=== PATIENT | female | born 1940 | race Caucasian/White ===

== ENCOUNTER 2020-07-14 08:42 | Outpatient (REF) | payer MEDICARE, SELFPAY ==
[2020-07-14 11:47] LABS: Estimated Average Glucose 131 mg/dL; Hemoglobin A1c % 6.2 %
[2020-07-14 11:57] LABS: Alanine Aminotransferase 31 U/L (0-31); Anion Gap 15 (12-20); Aspartate Amino Transferase 27 U/L (5-31); Blood Urea Nitrogen 20 mg/dL (9-16); Calcium 9.3 mg/dL (8.4-10.2); Carbon Dioxide 25 mmol/L (22-29); Chloride 106 mmol/L (96-108); Cholesterol 171 mg/dL; Estimated Glomerular Filt Rate > 60; Glucose Fasting 136 mg/dL (60-99); HDL Cholesterol 56 mg/dL; LDL Cholesterol Calculated 88 mg/dl; Potassium 4.6 mmol/l (3.3-5.1); Sodium 141 mmol/L (135-145); Triglycerides 136 mg/dL
[2020-07-14 12:03] LABS: Microalbum/Creatinine Ratio Ur 18.1 ug/mg cr
[2020-07-14 12:09] LABS: Vitamin D 25-OH Total 54.3 ng/mL (>30)
== END 2020-07-14 08:43 | disposition home or self-care (01) ==
LOC: HO.HMGCLDS 08:42
PROVIDERS: PCP Internal Medicine; Visit Provider Internal Medicine
DX: E78.5 Hyperlipidemia, unspecified (principal); E11.9 Type 2 diabetes mellitus without complications; I10 Essential (primary) hypertension
CPT/HCPCS: 36415; 80048; 80061; 82043; 82306; 83036; 84450; 84460

== ENCOUNTER 2020-10-12 17:14 | Emergency (ER) | payer MEDICARE, SELFPAY | END 2020-10-12 19:02 | disposition left against medical advice (07) | PROVIDERS: Emergency Provider Emergency Medicine; PCP Internal Medicine | DX: M25.512 Pain in left shoulder (principal); M25.511 Pain in right shoulder ==

== ENCOUNTER 2020-11-10 09:32 | Outpatient (REF) | payer MEDICARE, SELFPAY ==
[2020-11-10 11:40] LABS: Estimated Average Glucose 134 mg/dL; Hemoglobin A1c % 6.3 %
[2020-11-10 12:03] LABS: Alanine Aminotransferase 28 U/L (0-31); Anion Gap 13 (12-20); Aspartate Amino Transferase 27 U/L (5-31); Blood Urea Nitrogen 19 mg/dL (9-16); Calcium 9.7 mg/dL (8.4-10.2); Carbon Dioxide 27 mmol/L (22-29); Chloride 105 mmol/L (96-108); Cholesterol 175 mg/dL; Estimated Glomerular Filt Rate > 60; Glucose Fasting 139 mg/dL (60-99); HDL Cholesterol 53 mg/dL; LDL Cholesterol Calculated 89 mg/dl; Potassium 4.3 mmol/L (3.3-5.1); Sodium 141 mmol/L (135-145); Triglycerides 166 mg/dL
[2020-11-10 12:07] LABS: Vitamin D 25-OH Total 51.9 ng/mL (>30)
[2020-11-10 12:39] LABS: Creatinine Urine 195.48 mg/dL; Microalbum/Creatinine Ratio Ur 11.2 ug/mg cr
== END 2020-11-10 09:33 | disposition home or self-care (01) ==
LOC: HO.HMGCLDS 09:32
PROVIDERS: PCP Internal Medicine; Visit Provider Internal Medicine
DX: E78.5 Hyperlipidemia, unspecified (principal); E11.9 Type 2 diabetes mellitus without complications; I10 Essential (primary) hypertension; Z78.0 Asymptomatic menopausal state
CPT/HCPCS: 36415; 80048; 80061; 82043; 82306; 83036; 84450; 84460

== ENCOUNTER 2021-05-17 09:55 | Outpatient (REF) | payer MEDICARE, SELFPAY ==
[2021-05-17 12:15] LABS: Estimated Average Glucose 131 mg/dL; Hemoglobin A1C 151.4857 umol/L; Hemoglobin A1c % 6.2 %
[2021-05-17 16:13] LABS: Alanine Aminotransferase 36 U/L (0-31); Anion Gap 14 (12-20); Aspartate Amino Transferase 29 U/L (5-31); Blood Urea Nitrogen 23 mg/dL (9-16); Calcium 9.7 mg/dL (8.4-10.2); Carbon Dioxide 26 mmol/L (22-29); Chloride 105 mmol/L (96-108); Cholesterol 186 mg/dL; Estimated Glomerular Filt Rate 56; Glucose Fasting 166 mg/dL (60-99); HDL Cholesterol 55 mg/dL; LDL Cholesterol Calculated 99 mg/dl; Potassium 4.7 mmol/L (3.3-5.1); Sodium 140 mmol/L (135-145); Triglycerides 162 mg/dL
[2021-05-17 16:34] LABS: Vitamin D 25-OH Total 50.4 ng/mL (>30)
== END 2021-05-17 09:56 | disposition home or self-care (01) ==
LOC: HO.HMGCLDS 09:55
PROVIDERS: PCP Internal Medicine; Visit Provider Internal Medicine
DX: E11.9 Type 2 diabetes mellitus without complications (principal); E78.5 Hyperlipidemia, unspecified; I10 Essential (primary) hypertension; M85.852 Other specified disorders of bone density and structure, left thigh; Z78.0 Asymptomatic menopausal state
CPT/HCPCS: 36415; 80048; 80061; 82306; 83036; 84450; 84460

== ENCOUNTER 2021-07-08 10:45 | Outpatient (REF) | payer MEDICARE, SELFPAY ==
--- NOTE | ~2021-07-08 | MM_ITS ---
EXAMINATION: MM SCREENING DIGITAL BREAST TOMOSYNTHESIS, BILATERAL CLINICAL INFORMATION: Screening. Asymptomatic. The lifetime risk of breast cancer based on the Tyrer-Cuzick Model is 2.1%. COMPARISON: Mammography: June 11, 2019 and studies dating back to April 24, 2014 TECHNIQUE: Digital breast tomosynthesis is performed in both the craniocaudal and mediolateral oblique views along with computer-aided detection (CAD). Synthesized 2D images are generated from the tomosynthesis. FINDINGS: There are scattered areas of fibroglandular density (ACR BI-RADS breast composition Category b). There are no significant masses, abnormal calcifications, or other abnormalities. MM/MM tomosynthesis screening BI IMPRESSION: There are no significant changes from prior study. ASSESSMENT: BI-RADS 1: Negative RECOMMENDATION: Routine annual mammography screening. This patient's information was entered into a reminder system with a target due date for their next mammogram.
--- NOTE | ~2021-07-08 | MM_ITS ---
EXAMINATION: BONE DENSITOMETRY CLINICAL INDICATION: Menopause. COMPARISON: Previous BD dated 06/05/2018 and baseline BD dated 08/28/2009. TECHNIQUE: Using a Revivio DXA System (software version: 13.1) manufactured by [employer], dual-energy x-ray absorptiometry was performed of the lumbar spine and left hip. The images are of good technical quality. Summary results are attached. FINDINGS: AP SPINE L1-L3 (excluding L4): The data of L1-L4 has been changed to exclude the L4 vertebral body, because degenerative changes at this level may cause overestimation of lumbar spine density. Current: BMD 1.201 g/cm2, Z-score 1.3, T-score 0.3, normal, 2.7% decrease from previous, 2.0% increase from baseline (<5% change is not significant). Prior: BMD 1.234 g/cm2. Baseline: BMD 1.178 g/cm2. LEFT FEMUR, NECK: Current: BMD 0.938 g/cm2, Z-score 1.0, T-score -0.7, normal. Prior: BMD 0.936 g/cm2. Baseline: BMD 1.011 g/cm2. LEFT FEMUR, TOTAL: Current: BMD 1.137 g/cm2, Z-score 2.6, T-score 1.0, normal, 4.5% increase from previous, 1.2% decrease from baseline (<5% change is not significant). Prior: BMD 1.088 g/cm2. Baseline: BMD 1.151 g/cm2. IDENTIFIED RISK FACTORS: Menopause, hysterectomy, family history (parent hip fracture), bilateral oophorectomy. HISTORY OF FRACTURE: None listed. MEDICATIONS: Vitamin D. MM/XR DEXA axial skeleton IMPRESSION: 1. DIAGNOSIS: Normal bone density based on the lowest T-score value of -0.7 in the femoral neck applying World Health Organization criteria. 2. 10-YEAR FRACTURE RISK PREDICTION, FRAX: Major osteoporotic fracture (clinical spine, forearm, hip or shoulder) 15.9%. Hip fracture 7.5%. 3. Treatment Recommendations: NOF guidelines recommend consideration for treatment in postmenopausal women and men age 50 and older presenting with the following: -A hip or vertebral (clinical or morphometric) fracture. -T-score less than or equal to -2.5 at the femoral neck or spine after appropriate evaluation to exclude secondary causes. -Low bone mass at the hip or spine and a 10-year fracture probability by FRAX of greater than or equal to 3% for hip fracture or greater than or equal to 20% for major osteoporotic fracture based on the [place] adapted WHO algorithm. 4. Other Recommendations: All treatment decisions require clinical judgment and consideration of individual patient factors, including patient preferences, comorbidities, previous drug use, risk factors not captured in the FRAX model (e.g. frailty, falls, vitamin D deficiency, increased bone turnover, interval significant decline in bone density) and possible under or overestimation of fracture risk by FRAX. FUTURE SCAN RECOMMENDATION: People with diagnosed cases of osteoporosis or at high risk for fracture should have regular bone mineral density tests. For patients eligible for Medicare, routine testing is allowed once every 2 years. The testing frequency can be increased to one year for patients who have rapidly progressing disease, those who are receiving or discontinuing medical therapy to restore bone mass, or have additional risk factors.
== END 2021-07-08 10:46 | disposition home or self-care (01) ==
LOC: HO.MAMMO 10:45
PROVIDERS: PCP Internal Medicine; Visit Provider Internal Medicine
DX: Z12.31 Encounter for screening mammogram for malignant neoplasm of breast (principal); Z13.820 Encounter for screening for osteoporosis; M85.852 Other specified disorders of bone density and structure, left thigh; Z78.0 Asymptomatic menopausal state; Z90.722 Acquired absence of ovaries, bilateral; Z79.899 Other long term (current) drug therapy
CPT/HCPCS: 77063; 77067; 77080

== ENCOUNTER 2021-11-26 08:52 | Outpatient (REF) | payer MEDICARE, SELFPAY ==
[2021-11-26 12:06] LABS: Creatinine Urine 206.34 mg/dL; Microalbum/Creatinine Ratio Ur 19.3 ug/mg cr; Vitamin D 25-OH Total 49.1 ng/mL (>30)
[2021-11-26 12:09] LABS: Alanine Aminotransferase 24 U/L (0-31); Anion Gap 11 (12-20); Aspartate Amino Transferase 21 U/L (5-31); Blood Urea Nitrogen 21 mg/dL (9-16); Calcium 10.5 mg/dL (8.4-10.2); Carbon Dioxide 27 mmol/L (22-29); Chloride 104 mmol/L (96-108); Cholesterol 184 mg/dL; Estimated Glomerular Filt Rate 54; Glucose Fasting 161 mg/dL (60-99); HDL Cholesterol 55 mg/dL; LDL Cholesterol Calculated 97 mg/dl; Potassium 4.3 mmol/L (3.3-5.1); Sodium 138 mmol/L (135-145); Triglycerides 163 mg/dL
== END 2021-11-26 08:53 | disposition home or self-care (01) ==
LOC: HO.HMGCLDS 08:52
PROVIDERS: PCP Internal Medicine; Visit Provider Internal Medicine
DX: E11.9 Type 2 diabetes mellitus without complications (principal); E78.5 Hyperlipidemia, unspecified; I10 Essential (primary) hypertension; M85.852 Other specified disorders of bone density and structure, left thigh; Z78.0 Asymptomatic menopausal state
CPT/HCPCS: 36415; 80048; 80061; 82043; 82306; 84450; 84460

== ENCOUNTER → 2022-01-18 10:10 | Outpatient (BNVA) | payer MEDICARE, SELFPAY | PROVIDERS: PCP Internal Medicine; Visit Provider Physician Assistant | DX: M65.332 Trigger finger, left middle finger (principal); M65.331 Trigger finger, right middle finger | CPT/HCPCS: 99202 ==

== ENCOUNTER 2022-02-24 09:41 | Outpatient (REF) | payer MEDICARE, SELFPAY ==
--- NOTE | 2022-02-24 10:23 | MHC.SHP ---
Pre-Procedural Eval Section A Date of Service: 02/24/22 The patient is an INPATIENT: No Changes since office visit: No Cold of Flu in the past 2 weeks, No New Medical Problems, No Changes in Medication and No Patient answered all questions The History & Physical has been completed within 30 days and I have reviewed it.: Yes Section B Chief Complaint: Trigger finger, right middle and ring finger Allergies: Allergies Allergy/AdvReac Type Severity Reaction Status Date / Time JEM Inhibitors Allergy Unknown unknown Verified 01/18/22 10:34 estrogens, conjugated Allergy Unknown ITCHING Verified 01/18/22 10:34 [From PREMARIN] hydrochlorothiazide Allergy Unknown unknown Verified 01/18/22 10:34 Plan I have reviewed the history and physical and performed a pertinent physical examination on my patient. No changes have occurred unless specified.
--- NOTE | 2022-02-24 10:32 | W.PM.OPN ---
Operative Note Operative Note Date of Service: 02/24/22 Narrative: Operative Note Preop diagnosis: 1. right middle finger Trigger finger Postop diagnosis: 1. right middle finger Trigger finger Procedure: 1. right middle finger A1 michael release Surgeon: Tracey Owens MD Anesthesia: local block using 1% lidocaine with epinephrine Findings: No locking or catching after A1 michael release EBL: Less than 5 mL Tourniquet time: None Specimens: None Complications: None Disposition: Brought to recovery room in stable condition Plan: Follow-up for 10-14 days for wound check and suture removal Indications: The patient is 81 years old, with a right middle finger trigger finger that has been unresponsive to nonoperative management. The risks and benefits of operative treatment including but not limited to risk of damage to blood vessels, nerves, tendons, infection, persistent pain, persistent symptoms, recurrence or possible need for additional surgery were discussed with the patient and the patient wishes to proceed with surgery. Procedure: Once consent was obtained a local block was performed in the preop area using a combination of 1% lidocaine with epinephrine. The patient was then brought back to the operating suite and placed on the operative table in supine position. A tourniquet was applied to the proximal aspect of the right upper extremity and the limb was prepped and draped in a standard surgical fashion. Once assured that we had a good block, a 1.5 cm oblique incision was made centered over the A1 michael of the right middle finger . The incision was made through the skin to the subcutaneous tissues using a #15 blade. Careful dissection was made down to the level of the A1 michael using tenotomy scissors, with care being taken to protect the nearby neurovascular structures. A longitudinal incision was made in the A1 michael 1st using a #15 blade, then using tenotomy scissors under direct visualization. The A1 michael was noted to be thickened. Following our A1 michael release, we no longer saw any locking or catching of the digit with flexion and extension. Once satisfied with our A1 michael release the wound was copiously irrigated with normal saline and hemostasis was obtained with a brief period of local pressure. The skin edges were reapproximated with some 5.0 nylon suture material and a sterile dressing was applied. The patient appears to have tolerated the procedure well and with no complications. All digits were well vascularized at the conclusion of the case.
== END 2022-02-24 09:42 | disposition home or self-care (01) ==
LOC: HO.MS 09:41
PROVIDERS: PCP Internal Medicine; Visit Provider Orthopaedic Surgery
PROC: (CPT 26055; principal; 2022-02-24 13:20)
DX: M65.331 Trigger finger, right middle finger (principal); E78.5 Hyperlipidemia, unspecified; I10 Essential (primary) hypertension; E11.9 Type 2 diabetes mellitus without complications; E83.52 Hypercalcemia; M85.80 Other specified disorders of bone density and structure, unspecified site; Z90.2 Acquired absence of lung [part of]; Z88.8 Allergy status to other drugs, medicaments and biological substances
CPT/HCPCS: 26055; J0171

== ENCOUNTER → 2022-03-09 09:09 | Outpatient (BNVA) | payer MEDICARE, SELFPAY | PROVIDERS: PCP Internal Medicine; Visit Provider Orthopaedic Surgery | DX: Z47.89 Encounter for other orthopedic aftercare (principal) | CPT/HCPCS: 99212 ==

== ENCOUNTER 2022-05-24 09:20 | Outpatient (REF) | payer MEDICARE, SELFPAY ==
[2022-05-24 12:18] LABS: Estimated Average Glucose 137 mg/dL; Hemoglobin A1c % 6.4 %
[2022-05-24 12:50] LABS: Alanine Aminotransferase 23 U/L (0-31); Anion Gap 15 (12-20); Aspartate Amino Transferase 23 U/L (5-31); Blood Urea Nitrogen 20 mg/dL (9-16); Calcium 9.8 mg/dL (8.4-10.2); Carbon Dioxide 25 mmol/L (22-29); Chloride 103 mmol/L (96-108); Cholesterol 193 mg/dL; Estimated Glomerular Filt Rate 54; Glucose Fasting 168 mg/dL (60-99); HDL Cholesterol 61 mg/dL; LDL Cholesterol Calculated 101 mg/dl; Potassium 4.4 mmol/L (3.3-5.1); Sodium 139 mmol/L (135-145); Triglycerides 157 mg/dL
[2022-05-27 16:36] LABS: Calcium, Ionized 5.1 mg/dL (4.8-5.6)
== END 2022-05-24 09:21 | disposition home or self-care (01) ==
LOC: HO.HMGCLDS 09:20
PROVIDERS: PCP Internal Medicine; Visit Provider Internal Medicine
DX: E11.9 Type 2 diabetes mellitus without complications (principal); E83.52 Hypercalcemia; I10 Essential (primary) hypertension; E78.5 Hyperlipidemia, unspecified
CPT/HCPCS: 36415; 80048; 80061; 82330; 83036; 84450; 84460

== ENCOUNTER 2022-07-14 11:01 | Outpatient (REF) | payer MEDICARE, SELFPAY ==
--- NOTE | ~2022-07-14 | MM_ITS ---
EXAMINATION: MM SCREENING DIGITAL BREAST TOMOSYNTHESIS, BILATERAL CLINICAL INFORMATION: Screening. Asymptomatic. The lifetime risk of breast cancer based on the Tyrer-Cuzick Model is 2.1%. COMPARISON: Mammography: July 08, 2021 and studies dating back to May 13, 2016 TECHNIQUE: Digital breast tomosynthesis is performed in both the craniocaudal and mediolateral oblique views along with computer-aided detection (CAD). Synthesized 2D images are generated from the tomosynthesis. FINDINGS: There are scattered areas of fibroglandular density (ACR BI-RADS breast composition Category b). There are no significant masses, abnormal calcifications, or other abnormalities. MM/MM tomosynthesis screening BI IMPRESSION: No significant changes from prior exam. ASSESSMENT: BI-RADS 1: Negative RECOMMENDATION: Routine annual mammography screening. This patient's information was entered into a reminder system with a target due date for their next mammogram.
== END 2022-07-14 11:02 | disposition home or self-care (01) ==
LOC: HO.MAMMO 11:01
PROVIDERS: Visit Provider Internal Medicine
DX: Z12.31 Encounter for screening mammogram for malignant neoplasm of breast (principal)
CPT/HCPCS: 77063; 77067

== ENCOUNTER 2022-10-06 09:08 | Outpatient (REF) | payer MEDICARE, SELFPAY ==
[2022-10-06 12:09] LABS: Alanine Aminotransferase 18 U/L (0-31); Anion Gap 13 (12-20); Aspartate Amino Transferase 32 U/L (5-31); Blood Urea Nitrogen 20 mg/dL (9-16); Calcium 9.8 mg/dL (8.4-10.2); Carbon Dioxide 27 mmol/L (22-29); Chloride 106 mmol/L (96-108); Cholesterol 177 mg/dL; Estimated Glomerular Filt Rate 59; Glucose Fasting 137 mg/dL (60-99); HDL Cholesterol 56 mg/dL; LDL Cholesterol Calculated 96 mg/dl; Potassium 4.7 mmol/L (3.3-5.1); Sodium 141 mmol/L (135-145); Triglycerides 129 mg/dL
[2022-10-06 12:14] LABS: Estimated Average Glucose 137 mg/dL; Hemoglobin A1c % 6.4 %
[2022-10-06 12:26] LABS: Creatinine Urine 142.35 mg/dL; Microalbum/Creatinine Ratio Ur 13.3 ug/mg cr
[2022-10-06 12:27] LABS: Vitamin D 25-OH Total 52.8 ng/mL (>30)
== END 2022-10-06 09:09 | disposition home or self-care (01) ==
LOC: HO.HMGCLDS 09:08
PROVIDERS: PCP Internal Medicine; Visit Provider Internal Medicine
DX: E11.9 Type 2 diabetes mellitus without complications (principal); E66.9 Obesity, unspecified; E78.5 Hyperlipidemia, unspecified; I10 Essential (primary) hypertension; Z78.0 Asymptomatic menopausal state
CPT/HCPCS: 36415; 80048; 80061; 82043; 82306; 83036; 84450; 84460

== ENCOUNTER 2023-04-05 09:27 | Outpatient (REF) | payer MEDICARE, SELFPAY ==
[2023-04-05 11:42] LABS: Estimated Average Glucose 137 mg/dL; Hemoglobin A1c % 6.4 % (<6.0)
[2023-04-05 12:26] LABS: Creatinine Urine 112.59 mg/dL; Microalbum/Creatinine Ratio Ur 9.7 ug/mg cr (<30)
[2023-04-05 12:48] LABS: Alanine Aminotransferase 18 U/L (0-31); Anion Gap 14 (12-20); Aspartate Amino Transferase 32 U/L (5-31); Blood Urea Nitrogen 19 mg/dL (9-16); Calcium 10.4 mg/dL (8.4-10.2); Carbon Dioxide 24 mmol/L (22-29); Chloride 105 mmol/L (96-108); Cholesterol 185 mg/dL (<200); Estimated Glomerular Filt Rate > 60; Glucose Fasting 131 mg/dL (60-99); HDL Cholesterol 55 mg/dL (>40); LDL Cholesterol Calculated 99 mg/dL (<100); Potassium 4.1 mmol/L (3.3-5.1); Sodium 139 mmol/L (135-145); Triglycerides 159 mg/dL (<150)
== END 2023-04-05 09:28 | disposition home or self-care (01) ==
LOC: HO.CHCLDS 09:27
PROVIDERS: Visit Provider Internal Medicine
DX: E78.5 Hyperlipidemia, unspecified (principal); E11.9 Type 2 diabetes mellitus without complications; I10 Essential (primary) hypertension
CPT/HCPCS: 36415; 80048; 80061; 82043; 82570; 83036; 84450; 84460

== ENCOUNTER 2023-04-14 10:56 | Outpatient (AMB) | payer MEDICARE, SELFPAY ==
[2023-04-14 11:28] VITALS: BP 138/82; PULSE 67; O2SAT 98; BMI 34.4
--- NOTE | 2023-04-14 11:28 | A.OFFPC_ITS ---
Vital Signs 04/14/23 11:28 Height 5 ft 3 in Weight 194 lb 6 oz BMI 34.4 BP 138/82 Blood Pressure Location Rt brachial Position Sitting Pulse 67 Pulse Source Pulse Oximeter Pulse Oximetry (%) 98 Oxygen Delivery Method Room Air Intake Visit Reasons: 6 month follow up DM,HTN and Lipids Intake Note: pt is here for 6 month f/u for DM, HTN, lipids It Software Developer Required: No Accompanied by: Daughter Allergies JEM Inhibitors Allergy (Unknown, Verified 04/14/23 11:57) unknown estrogens, conjugated [From PREMARIN] Allergy (Unknown, Verified 04/14/23 11:57) ITCHING hydrochlorothiazide Allergy (Unknown, Verified 04/14/23 11:57) unknown Medication List - Last Reconciled 04/14/23 by Crystal Huber MD amlodipine 5 mg PO DAILY cetirizine (Zyrtec) 10 mg PO DAILY PRN losartan 100 mg PO DAILY metoprolol tartrate 50 mg PO BID omega-3 fatty acids (Fish Oil Concentrate) 1,000 mg PO DAILY simvastatin 10 mg PO QPM Tobacco use date assessed: 10/13/22 Fall risk assessment: No Falls in past year Last assessed Fall Risk: 04/14/23 Dental Screening Dental Screen Date: 04/14/23 Did you have a dental visit in the last 12 months?: Yes Did you have a dental problem in the last 6 months where you did not have access to dental care?: No Was dental information given to patient?: Patient has dentist HPI HPI Comments History of Present Illness Details 82-year-old lady with hypertension, dysl ipidemia and type 2 diabetes mellitus currently diet controlled. Here today for follow-up. Doing well, stays active, follows a healthy diet. She has no complaints at present time. Recent fasting labs done showed hemoglobin A1c at 6.4%, and fasting lipids are within normal limits. Her serum calcium however is noted to be elevated at 10.4. Patient states that she drinks milk a lot, at least 3 gallons per week [facility] Medical History (Updated 04/16/23 @ 03:07 by Crystal Huber MD) Hx of skin cancer, basal cell Hypercalcemia Trigger finger, acquired Obesity Dyslipidemia Type 2 diabetes mellitus without complication, without long-term current use of insulin Essential hypertension Surgical History History of lobectomy of lung History of tonsillectomy History of cataract surgery History of total abdominal hysterectomy and bilateral salpingo-oophorectomy Family History Father No problems noted. Mother Alzheimer's disease Brother No problems noted. Brother No problems noted. Sister No problems noted. Son No problems noted. Son No problems noted. Daughter No problems noted. Social History Housing: House Alcohol intake: never Patient Tobacco Use Status: Never used Tobacco e-Cigarette/Vaping Use: Never Used service: No Current occupational status: retired and disabled Current occupation: [employer], right handed Cognitive needs: No Hearing needs: No Vision needs: Yes Questionnaire PHQ-9 Over the last 2 weeks, how often have you been bothered by any of the following problems? 1. Little interest or pleasure in doing things: not at all 2. Feeling down, depressed, or hopeless: several days 3. Trouble falling or staying asleep, or sleeping too much: more than half the days 4. Feeling tired or having little energy: several days 5. Poor appetite or overeating: not at all 6. Feeling bad about yourself - or that you are a failure or have let yourself or your family down: not at all 7. Trouble concentrating on things, such as reading the newspaper or watching television: not at all 8. Moving or speaking so slowly that other people could have noticed. Or the opposite - being so fidgety or restless that you have been moving around a lot more than usual: not at all 9. Thoughts that you would be better off or of hurting yourself in some way: not at all Total score: 4 Depression Screening Interpretation: Negative Depression Screening Done: Yes 55690 - PHQ-9 Billing: Yes Source: Developed by Drs. Cristian Waters, Jacquelyn Miller, Deejay Champagne and colleagues, with an educational gabriela from [employer]. Thrive Questionnaire Date Thrive assessed: 04/14/23 I am a: Patient What is your living situation today?: I have a steady place to live Within the past 12 months, did the food you bought not last and you didn't have the money to get more?: Sometimes True Within the past 12 months, did you worry whether your food would run out before you got money to buy more?: Never true Do you have trouble paying for medicines?: No Do you have trouble getting transportation to medical appointments?: Yes Do you have trouble paying your heating and electricity bill?: No Do you have trouble taking care of your child, family member or friend?: No Do you have trouble with day-to-day activities such as bathing, preparing meals, shopping, managing finances, etc.?: No Are you currently unemployed and looking for a job?: No Are you interested in more education?: No Please select the resources that you would like help with: None Currently or been in a relationship where the following occur: no concerns reported SAMUEL-7 AMB Questionnaire SAMUEL-7 Date SAMUEL - 7 assessed: 04/14/23 Feeling nervous, anxious, or on edge: 0 = Not at all Not being able to stop or control worryin = Not at all Worrying too much about different things: 0 = Not at all Trouble relaxin = Not at all Being so restless that it is hard to sit still: 0 = Not at all Becoming easily annoyed or irritable: 0 = Not at all Feeling afraid as if something awful might happen: 0 = Not at all Total SAMUEL-7 score (0-4 normal; 5-9 mild; 10-14 moderate; 15-21 severe): 0 Source: Developed by Drs. Cristian Waters, Jacquelyn Miller, Deejay Champagne and colleagues, with an educational gabriela from [employer]. SAMUEL-7 Assessment Billing SAMUEL-7 Assessment Tool: SAMUEL-7 Assessment 67973 Review of Systems Const Denies body aches, Denies fatigue, Denies headache(s) and Denies weakness ENT Denies dizziness, Denies headache(s), Denies nasal congestion, Denies nasal discharge and Denies sore throat Card Denies chest pain, Denies lightheadedness, Denies palpitations and Denies dyspnea Resp Denies chest congestion, Denies cough, Denies dyspnea and Denies wheezing GI Denies abdominal pain, Denies change in bowel habits and Denies heartburn Denies urinary frequency, Denies dysuria and Denies urinary urgency Musc Denies back pain, Denies myalgias, Denies arthralgias, Denies joint swelling and Denies limited range of motion Neuro Denies dizziness, Denies headache(s) and Denies weakness Endo Denies fatigue, Denies polydipsia, Denies polyuria and Denies palpitations Aller/Immun Denies wheezing Physical exam (Primary Care) Vital Signs: Last Vital Signs Pulse 67 04/14/23 11:28 BP 138/82 04/14/23 11:28 Pulse Ox 98 04/14/23 11:28 Oxygen Delivery Method Room Air 04/14/23 11:28 BMI result Body Mass Index 34.4 BMI Assessment/Plan discussion: High BMI High, discussed plan: lifestyle, weight reduction, dietary and physical activity Tobacco/Smoking Status: Tobacco use Status Tobacco use date assessed 10/13/22 04/14/23 11:30 Patient Tobacco Use Status Never used Tobacco 04/14/23 11:30 e-Cigarette/Vaping Use Never Used 04/14/23 11:30 PHQ-9: PHQ-9 Score PHQ-9: Total score 4 04/14/23 12:13 Depression Screening Interpretation: Negative Thrive Assessment: Date of Thrive Assessment Date Thrive assessed 04/14/23 04/14/23 11:50 Currently or been in a relationship where the following occur: no concerns reported Const General: comfortable, no acute distress and alert Orientation/consciousness: patient oriented x3 Limitations: no limitations HENMT Ears: external ears normal General nose exam: Normal external nose present and No nasal discharge present Mouth: oropharynx normal and moist mucous membranes Eyes General: appearance normal, both eyes and all related structures Neck Neck: Yes full ROM, Yes no lymphadenopathy and Yes supple Resp Effort & Inspection: normal respiratory effort and able to speak in complete sentences Auscultation: clear to auscultation bilaterally Cardio Rate: regular rate Rhythm: regular rhythm Heart sounds: S1 normal heart sound present and S2 normal heart sound present GI Palpation (GI): Soft to palpation, nontender and no masses Auscultation: normal bowel sounds Back/Spine/Pelvis Back: No back tenderness Skin General skin exam: no rashes or lesions noted Neuro General: patient oriented x3, gait normal, tone normal, moves all extremities, Normal light touch and pain sensation and no focal motor deficits Cranial nerves: Yes CN's II-XII intact bilaterally Cognition (Neuro): normal cognition Extrem General: Yes full ROM, Yes no joint enlargement, Yes no clubbing, cyanosis or edema and Yes no calf tenderness Results Reviewed Results Reviewed: ENTERED: 04/05/23 PRANEETH FAIR: ORDERED: Met Prof Fast, AST, ALT, Lipid Panel Test Result Flag Reference Site Sodium 139 135-145 mmol/L Potassium 4.1 3.3-5.1 mmol/L CL 105 96-108 mmol/L CO2 24 22-29 mmol/L Gap 14 12-20 BUN 19 H 9-16 mg/dL Creat 0.85 0.5-1.4 mg/dL EGFR > 60 NOTE: For -[place] individuals, multiply the result by 1.210. Chronic Kidney Disease: Estimated GFR < 60 mL/min/1.73m2 Severe Kidney Disease: Estimated GFR < 15 mL/min/1.73m2 FBS 131 H 60-99 mg/dL A fasting glucose of 126 mg/dl or greater on more than one occasion is considered diagnostic of diabetes. CA 10.4 # H 8.4-10.2 mg/dL AST (GOT) 32 H 5-31 U/L ALT (GPT) 18 0-31 U/L Triglyceride 159 H <150 mg/dL Desirable Triglyceride: less than 150 mg/dL Borderline High Triglyceride 150-199 mg/dL High Triglyceride: 200-499 mg/dL Very High Triglyceride: greater than or equal to 5OO mg/dL Cholesterol 185 <200 mg/dL Desirable Cholesterol: less than 200 mg/dL Borderline High Cholesterol: 200-239 mg/dL High Cholesterol: greater than 239 mg/dL LDL Calculated 99 <100 mg/dL Desirable LDL: less than 100 mg/dL Near Optimal/Above Optimal LDL: 110-129 mg/dL Borderline High LDL: 130-159 mg/dL High LDL: 160-189 mg/dL Very High LDL: greater than or equal to 190 mg/dL HDL 55 >40 mg/dL Desirable HDL: greater than 40 mg/dL Laboratory Tests 04/05/23 09:37 Estimat Average Glucose 137 Hemoglobin A1c % 6.4 H Assessment and Plan Assessment & Plan (1) Essential hypertension: Code(s): I10 - Essential (primary) hypertension Plan: Blood pressure stable controlled on present treatment, continue with amlodipine 5 mg daily and losartan 100 mg daily as well as metoprolol 50 mg 1 tablet twice a day. (2) Type 2 diabetes mellitus without complication, without long-term current use of insulin: Code(s): E11.9 - Type 2 diabetes mellitus without complications Plan: Latest hemoglobin A1c is 6.4%, diet controlled. Up-to-date with her eye exam. (3) Dyslipidemia: Code(s): E78.5 - Hyperlipidemia, unspecified Plan: Reviewed recent fasting lipid profile with patient with levels within normal limits . Continue with taking [place] 3 fatty acid supplements , in addition to adherence to low-cholesterol diet and regular exercise, at least 30 minutes 3 to 4 times a week. Advised patient to make healthy food choices, eat more fruits, vegetables, whole grains, wild caught fish and low-fat dairy. Limit amount of meat and fried or fatty food products, as well as processed foods and fast foods. (4) Obesity: Code(s): E66.9 - Obesity, unspecified Qualifiers: Obesity classification: adult class 1 (BMI 30 - 34.9) Serious obesity comorbidity presence: with serious comorbidity Body mass index: BMI 34.0-34.9 Obesity type: due to excess calories Qualified Code(s): E66.09 - Other obesity due to excess calories; Z68.34 - Body mass index [BMI] 34.0-34.9, adult Plan: Discussed need to increase activity and lose weight Recommended focusing on improving your health instead of dieting. : Eat Mediterranean diet, limit foods high in fat, sugar, and calories, eat slowly, pay attention to portion sizes, plan your meals ahead of time, start regular physical activity 150 minutes of moderate intensity exercise or 90 minutes/week of vigorous exercise and increase water intake. (5) Hypercalcemia: Code(s): E83.52 - Hypercalcemia Plan: Will repeat another serum calcium level on next visit together with ionized calcium level. In the meantime advised patient advised to cut back on her milk intake maybe just 1 glass a day. Orders: Orders Lipid Panel 10/02/23 E11.9 - Type 2 diabetes mellitus without complications, E66.9 - Obesity, unspecified, E78.5 - Hyperlipidemia, unspecified, E83.52 - Hypercalcemia, I10 - Essential (primary) hypertension, Z78.0 - Asymptomatic menopausal state Basic Metabolic Panel Fasting 10/02/23 E11.9 - Type 2 diabetes mellitus without complications, E66.9 - Obesity, unspecified, E78.5 - Hyperlipidemia, unspecified, E83.52 - Hypercalcemia, I10 - Essential (primary) hypertension, Z78.0 - Asymptomatic menopausal state Calcium, Ionized 10/02/23 E11.9 - Type 2 diabetes mellitus without complications, E66.9 - Obesity, unspecified, E78.5 - Hyperlipidemia, unspecified, E83.52 - Hypercalcemia, I10 - Essential (primary) hypertension, Z78.0 - Asymptomatic menopausal state Hemoglobin A1c 10/02/23 E11.9 - Type 2 diabetes mellitus without complications, E66.9 - Obesity, unspecified, E78.5 - Hyperlipidemia, unspecified, E83.52 - Hypercalcemia, I10 - Essential (primary) hypertension, Z78.0 - Asymptomatic menopausal state Microalbumin, Random (w Creat) 10/02/23 E11.9 - Type 2 diabetes mellitus without complications, E66.9 - Obesity, unspecified, E78.5 - Hyperlipidemia, unspecified, E83.52 - Hypercalcemia, I10 - Essential (primary) hypertension, Z78.0 - Asymptomatic menopausal state Alanine Aminotransferase 10/02/23 E11.9 - Type 2 diabetes mellitus without complications, E66.9 - Obesity, unspecified, E78.5 - Hyperlipidemia, unspecified, E83.52 - Hypercalcemia, I10 - Essential (primary) hypertension, Z78.0 - Asymptomatic menopausal state Aspartate Amino Transferase 10/02/23 E11.9 - Type 2 diabetes mellitus without complications, E66.9 - Obesity, unspecified, E78.5 - Hyperlipidemia, unspecified, E83.52 - Hypercalcemia, I10 - Essential (primary) hypertension, Z78.0 - Asymptomatic menopausal state Vitamin D 25-OH Total 10/02/23 E11.9 - Type 2 diabetes mellitus without complications, E66.9 - Obesity, unspecified, E78.5 - Hyperlipidemia, unspecified, E83.52 - Hypercalcemia, I10 - Essential (primary) hypertension, Z78.0 - Asymptomatic menopausal state Coding Level of Care Code Est Pt Level 3 (60024) Diagnoses Essential hypertension I10 Type 2 diabetes mellitus without complication, without long-term current use of insulin E11.9 Dyslipidemia E78.5 Class 1 obesity due to excess calories with serious comorbidity and body mass index (BMI) of 34.0 to 34.9 in adult E66.09; Z68.34 Obesity classification: adult class 1 (BMI 30 - 34.9) Serious obesity comorbidity presence: with serious comorbidity Body mass index: BMI 34.0-34.9 Obesity type: due to excess calories Hypercalcemia E83.52 Additional Codes SAMUEL-7 Assessment Billing - SAMUEL-7 Assessment Tool: SAMUEL-7 Assessment 00520 ([id number])
== END 2023-04-14 12:15 | disposition home or self-care (01) ==
PROVIDERS: Visit Provider Internal Medicine
DX: I10 Essential (primary) hypertension (principal); E11.9 Type 2 diabetes mellitus without complications; E66.09 Other obesity due to excess calories; Z68.34 Body mass index [BMI] 34.0-34.9, adult; E78.5 Hyperlipidemia, unspecified; E83.52 Hypercalcemia
CPT/HCPCS: 99213

== ENCOUNTER 2023-07-20 10:53 | Outpatient (REF) | payer MEDICARE, SELFPAY ==
--- NOTE | ~2023-07-20 | MM_ITS ---
EXAMINATION: MM SCREENING DIGITAL BREAST TOMOSYNTHESIS, BILATERAL CLINICAL INFORMATION: Screening. Asymptomatic. COMPARISON: Mammography: This study is compared with prior exams dating back to 2018. TECHNIQUE: Digital breast tomosynthesis is performed in both the craniocaudal and mediolateral oblique views along with computer-aided detection (CAD). Synthesized 2D images are generated from the tomosynthesis. FINDINGS: There are scattered areas of fibroglandular density (ACR BI-RADS breast composition Category b). There are no significant masses, abnormal calcifications, or other abnormalities. There are few, bilateral, coarse, benign calcifications in each breast. MM/MM tomosynthesis screening BI IMPRESSION: No mammographic evidence of malignancy. ASSESSMENT: BI-RADS BI-RADS 2 - Benign Findings RECOMMENDATION: Routine annual mammography screening. 1 year F/U This examination should not preclude the clinical evaluation of a suspicious palpable abnormality. This patient's information was entered into a reminder system with a target due date for their next mammogram.
== END 2023-07-20 10:54 | disposition home or self-care (01) ==
LOC: HO.MAMMO 10:53
PROVIDERS: PCP Internal Medicine; Visit Provider Internal Medicine
DX: Z12.31 Encounter for screening mammogram for malignant neoplasm of breast (principal)
CPT/HCPCS: 77063; 77067

== ENCOUNTER → 2023-07-20 11:30 | Outpatient (BNV) | payer MEDICARE, SELFPAY | PROVIDERS: PCP Internal Medicine; Visit Provider Radiology Diagnostic Radiology | DX: Z12.31 Encounter for screening mammogram for malignant neoplasm of breast (principal) | CPT/HCPCS: 77063; 77067 ==

== ENCOUNTER 2023-10-12 09:01 | Outpatient (REF) | payer MEDICARE, SELFPAY ==
[2023-10-12 11:00] LABS: Estimated Average Glucose 143 mg/dL; Hemoglobin A1c % 6.6 % (<6.0)
[2023-10-12 11:05] LABS: Alanine Aminotransferase 18 U/L (0-31); Anion Gap 10 (12-20); Aspartate Amino Transferase 26 U/L (5-31); Blood Urea Nitrogen 25 mg/dL (9-16); Calcium 9.8 mg/dL (8.4-10.2); Carbon Dioxide 27 mmol/L (22-29); Chloride 107 mmol/L (96-108); Cholesterol 190 mg/dL (<200); Estimated Glomerular Filt Rate > 60; Glucose Fasting 142 mg/dL (60-99); HDL Cholesterol 57 mg/dL (>40); LDL Cholesterol Calculated 98 mg/dL (<100); Potassium 4.3 mmol/L (3.3-5.1); Sodium 140 mmol/L (135-145); Triglycerides 178 mg/dL (<150)
[2023-10-12 11:12] LABS: Microalbum/Creatinine Ratio Ur 20.3 ug/mg cr (<30)
[2023-10-12 11:33] LABS: Vitamin D 25-OH Total 64.4 ng/mL (>30)
[2023-10-16 09:38] LABS: Calcium, Ionized 5.3 mg/dL (4.7-5.5)
== END 2023-10-12 09:02 | disposition home or self-care (01) ==
LOC: HO.HMGCLDS 09:01
PROVIDERS: PCP Internal Medicine; Visit Provider Internal Medicine
DX: I10 Essential (primary) hypertension (principal); E11.9 Type 2 diabetes mellitus without complications; E66.9 Obesity, unspecified; E83.52 Hypercalcemia; E78.5 Hyperlipidemia, unspecified; Z78.0 Asymptomatic menopausal state
CPT/HCPCS: 36415; 80048; 80061; 82043; 82306; 82330; 82570; 83036; 84450; 84460

== ENCOUNTER 2023-10-20 10:35 | Outpatient (AMB) | payer MEDICARE, SELFPAY ==
[2023-10-20 11:15] VITALS: BP 108/72; PULSE 61; O2SAT 97; BMI 34.0
--- NOTE | 2023-10-20 11:15 | AM.OFFVISMDC ---
Intake Vital Signs 10/20/23 11:15 Height 5 ft 3 in Weight 192 lb BMI 34.0 BP 108/72 Blood Pressure Location Rt brachial Position Sitting Pulse 61 Pulse Source Pulse Oximeter Pulse Oximetry (%) 97 Oxygen Delivery Method Room Air Intake Visit Reasons: GLORIAV G0439 Intake Note: Pt is here today for her SWV Allergies JEM Inhibitors Allergy (Unknown, Verified 10/22/23 21:53) unknown estrogens, conjugated [From PREMARIN] Allergy (Unknown, Verified 10/22/23 21:53) ITCHING hydrochlorothiazide Allergy (Unknown, Verified 10/22/23 21:53) unknown Medication List - Last Reconciled 10/22/23 by Crystal Huber MD amlodipine 5 mg PO DAILY cetirizine (Zyrtec) 10 mg PO DAILY PRN losartan 100 mg PO DAILY metoprolol tartrate 50 mg PO BID omega-3 fatty acids (Fish Oil Concentrate) 1,000 mg PO DAILY simvastatin 10 mg PO QPM HPI SWV G0439 HPI Details SWV ?83 year old with hypertension, hyperlipidemia, obesity and type 2 diabetes mellitus diet control, here today for her subsequent wellness visit She had a recent mammogram done 07/20/2023 with normal findings, last lipid panel done 10/12/2023 showed slightly elevated triglycerides with normal LDL and HDL cholesterol, and hemoglobin A1c obtained at the same time was at 6.6%. She had a bone density scan done in 2021 which showed normal findings. She no longer gets colonoscopies, last done in [address] Martin came back with normal findings. She is up-to-date with her COVID vaccination, gets yearly flu shot, up-to-date with her pneumonia vaccine and shingles vaccine. ? Medical / Social History Reviewed? Past Medical History ?Yes . ? [place] of Care / Care Team list updated ?Yes . ? Surgical/Hospitalization History ?Yes . ? Current Medications (including OTC and supplements) ?Yes . ? Family History ?Yes . ? Tobacco Control form ?Yes . ? AUDIT-C (Alcohol use) form ?Yes . ? Illicit drug use in Social History ?Yes . ? Current diagnosis of depression? ?No ? Appropriate PHQ2/PHQ9 completed ?Yes . ? Data entered by ?Marketing Director and reviewed by provider ? Fall Risk ? Fall History? Have you had any falls with injury in the past year? ?No . ? Have you had two or more falls in the past year? ?No . ? Fall Risk Assessment: ?No falls in the past year . ? HRA filled out by the patient, reviewed by Provider and scanned. ?SWV ? Balance? Romberg ?Yes . ? Tandem walk ?Yes, but with slight difficulty . ? Walk and Turn ?Yes . ? Rise from sit to stand ?Yes . ?Vision? Corrective lens ?none ? Vision screen ? Up-to-date, she sees Soledad Mitchell O.D. at [facility] last appointment was 02/10/2023 ?Hearing? Whisper test ?pass . ?Written Plan?Completed. See Patient Documents.? MOLST and healthcare proxy form already done [facility] Medical History (Updated 10/20/23 @ 12:03 by Crystal Huber MD) Hx of skin cancer, basal cell Hypercalcemia Trigger finger, acquired Obesity Dyslipidemia Type 2 diabetes mellitus without complication, without long-term current use of insulin Essential hypertension Surgical History History of lobectomy of lung History of tonsillectomy History of cataract surgery History of total abdominal hysterectomy and bilateral salpingo-oophorectomy Family History Father No problems noted. Mother Alzheimer's disease Brother No problems noted. Brother No problems noted. Sister No problems noted. Son No problems noted. Son No problems noted. Daughter No problems noted. Social History Housing: House Alcohol intake: never Patient Tobacco Use Status: Never used Tobacco e-Cigarette/Vaping Use: Never Used service: No Current occupational status: retired and disabled Current occupation: [employer], right handed Cognitive needs: No Hearing needs: No Vision needs: Yes Questionnaire Medicare Wellness Checkup What is your age?: 80 or older What gender do you identify with?: female During the past 4 weeks, how much have you been bothered by emotional problems such as feeling anxious, depressed, irritable, sad or downhearted, and blue?: not at all During the past 4 weeks, has your physical & emotional health limited your social activities with family, friends, neighbors, or groups?: not at all During the past 4 weeks, how much bodily pain have you generally had?: moderate pain During the past 4 weeks, was someone available to help you if you needed & wanted help?: yes, as much as I wanted During the past 4 weeks, what was the hardest physical activity you could do for at least 2 minutes?: moderate Can you get to places out of walking distance without help? (For eg., can you travel alone on buses, taxis or drive your car?): Yes Can you go shopping for groceries or clothes without someone's help?: No Can you prepare your own meals?: Yes Can you do your housework without help?: Yes Because of any health problems, do you need the help of another person with your personal care needs such as eating, bathing, dressing or getting around the house?: No Can you handle your own money without help?: Yes During the past 4 weeks, how would you rate your health in general?: good During the past 4 weeks how have things been going for you?: pretty well Are you having difficulties driving your car?: not applicable, I don't use a car Do you always fasten your seat belt when you are in a car?: yes, usually During past 4 weeks, have you been bothered by the following: never: Sexual problems? and Problems using the telephone? and sometimes: Falling or dizzy when standing up, Trouble eating well?, Teeth or denture problems? and Tiredness or fatigue? Have you fallen 2 or more times in the past year?: No Are you afraid of falling?: Yes Are you a smoker?: no During the past 4 weeks, how many drinks of wine, beer, or other alcoholic beverages did you have?: no alcohol at all Do you exercise for about 20 minutes 3 or more times a week?: no, I usually do not exercise this much Have you been given information to help with the following?: no: Hazards in your house that might hurt you? and no: Keeping track of your medications? How often do you have trouble taking medicines the way you have been told to take them?: I always take medicine as prescribed How confident are you that you can control & manage most of your health problems?: very confident What is your race?: White Mini Mental State Exam (MMSE) Orientation What is the (year) (season) (date) (day) (month)?: year (2023), season (Spring), date (10/20/2023), day (Monday) and month (October) Where are we (state) (county) (town or city) (hospital) (floor)?: state ([place]), county ([place]), town or city ([place]) and hospital/clinic ([facility]) Score Score: 9 Activity of Daily Living Bathing - sponge bath, tub bath or shower: receives no assistance (gets in/out by self, if usual bathing means Dressing - getting clothes from closets & drawers, including inner/outer garments & fasteners.: gets clothes & gets completely dressed without help Toileting - going to the 'toilet room' for urine/bowel elimination & cleaning self/arranging clothes: goes to toilet room, cleans self, arranges clothes without help Transfer: moves in & out of bed and chair without help (may use support object) Continence: has occasional 'accidents' Feeding: feeds self without help Total Score: 0 Using telephone: independent Traveling: needs assistance Shopping: needs assistance Preparing meals: independent Housework: needs assistance Taking medicine: independent Managing money: independent PHQ-9 Over the last 2 weeks, how often have you been bothered by any of the following problems? 1. Little interest or pleasure in doing things: not at all 2. Feeling down, depressed, or hopeless: not at all 3. Trouble falling or staying asleep, or sleeping too much: several days 4. Feeling tired or having little energy: not at all 5. Poor appetite or overeating: not at all 6. Feeling bad about yourself - or that you are a failure or have let yourself or your family down: not at all 7. Trouble concentrating on things, such as reading the newspaper or watching television: not at all 8. Moving or speaking so slowly that other people could have noticed. Or the opposite - being so fidgety or restless that you have been moving around a lot more than usual: not at all 9. Thoughts that you would be better off or of hurting yourself in some way: not at all Total score: 1 Depression Screening Interpretation: Negative Depression Screening Done: Yes 35610 - PHQ-9 Billing: Yes Source: Developed by Drs. Cristian Waters, Jacquelyn Miller, Deejay Champagne and colleagues, with an educational gabriela from [employer]. SAMUEL-7 AMB Questionnaire SAMUEL-7 Date SAMUEL - 7 assessed: 10/20/23 Feeling nervous, anxious, or on edge: 0 = Not at all Not being able to stop or control worryin = Not at all Worrying too much about different things: 1 = Several days Trouble relaxin = Not at all Being so restless that it is hard to sit still: 0 = Not at all Becoming easily annoyed or irritable: 0 = Not at all Feeling afraid as if something awful might happen: 0 = Not at all Total SAMUEL-7 score (0-4 normal; 5-9 mild; 10-14 moderate; 15-21 severe): 1 Source: Developed by Drs. Cristian Waters, Jacquelyn Miller, Deejay Champagne and colleagues, with an educational gabriela from [employer]. SAMUEL-7 Assessment Billing SAMUEL-7 Assessment Tool: SAMUEL-7 Assessment 04127 Physical Exam Vital Signs: Last Vital Signs Pulse 61 10/20/23 11:15 BP 108/72 10/20/23 11:15 Pulse Ox 97 10/20/23 11:15 Oxygen Delivery Method Room Air 10/20/23 11:15 BMI result Body Mass Index 34.0 Results Reviewed Results Reviewed: Laboratory Tests 10/12/23 09:33 Urine Creatinine 127.90 Urine Microalbumin 26.0 Microalb/Creat Ratio 20.3 Laboratory Tests 10/12/23 09:09 Estimat Average Glucose 143 Hemoglobin A1c % 6.6 H Name: Samreen Jensen Age/Sex: 83/F : 1940 Unit#: [id number] Attend Dr: Crystal Huber MD Re10/12/23 Status: DEP [facility] SPEC : [id number] SAMEER: 10/12/23 STATUS: COMP REQ : [id number] RECD: 10/12/23-[address]: Crystal Huber MD COMP: 10/12/23-3 ENTERED: 10/12/23-[address]: ORDERED: Met Prof Fast, AST, ALT, Lipid Panel, Vitamin D 25-OH Test Result Flag Reference Sodium 140 135-145 mmol/L Potassium 4.3 3.3-5.1 mmol/L CL 107 96-108 mmol/L CO2 27 22-29 mmol/L Gap 10 L 12-20 BUN 25 H 9-16 mg/dL Creat 0.83 0.5-1.4 mg/dL EGFR > 60 NOTE: For -Faro[place] individuals, multiply the result by 1.210. Chronic Kidney Disease: Estimated GFR < 60 mL/min/1.73m2 Severe Kidney Disease: Estimated GFR < 15 mL/min/1.73m2 FBS 142 H 60-99 mg/dL A fasting glucose of 126 mg/dl or greater on more than one occasion is considered diagnostic of diabetes. CA 9.8 8.4-10.2 mg/dL AST (GOT) 26 5-31 U/L ALT (GPT) 18 0-31 U/L Triglyceride 178 H <150 mg/dL Desirable Triglyceride: less than 150 mg/dL Borderline High Triglyceride 150-199 mg/dL High Triglyceride: 200-499 mg/dL Very High Triglyceride: greater than or equal to 5OO mg/dL Cholesterol 190 <200 mg/dL Desirable Cholesterol: less than 200 mg/dL Borderline High Cholesterol: 200-239 mg/dL High Cholesterol: greater than 239 mg/dL LDL Calculated 98 <100 mg/dL Desirable LDL: less than 100 mg/dL Near Optimal/Above Optimal LDL: 110-129 mg/dL Borderline High LDL: 130-159 mg/dL High LDL: 160-189 mg/dL Very High LDL: greater than or equal to 190 mg/dL HDL 57 >40 mg/dL Desirable HDL: greater than 40 mg/dL Note: This HDL assay may give artificially low results in patients with liver disease. Vit D 25-OH Tot 64.4 >30 ng/mL Health Based Reference Values* < 20 ng/mL Deficient 20-30 ng/mL Insufficient > 30 ng/mL Sufficient *Kenia ROJAS. N Engl J Med. 2007;357:266-280 Care must be taken in interpreting Vitamin D results from different laboratories and methodologies. Published data demonstrated that results from patients undergoing hemodialysis may show a negative bias when tested with various automated 25-OH vitamin D assays when compared to LC-MS/MS. When testing samples from patients whose predominant form of Vitamin D is Vitamin D2, such as patients receiving Vitamin D2 supplementation, results that are subtherapeutic should be confirmed with another method such as LC-MS/MS. Assessment & Plan Assessment & Plan (1) Dyslipidemia: Code(s): E78.5 - Hyperlipidemia, unspecified Plan: Lipids are within normal limits, continued on simvastatin and [place] 3 fatty acid supplements (2) Obesity: Code(s): E66.9 - Obesity, unspecified Qualifiers: Body mass index: BMI 34.0-34.9 Obesity classification: adult class 1 (BMI 30 - 34.9) Obesity type: due to excess calories Serious obesity comorbidity presence: with serious comorbidity Qualified Code(s): E66.09 - Other obesity due to excess calories; Z68.34 - Body mass index [BMI] 34.0-34.9, adult Plan: Reinforced importance of following healthy diet and staying active (3) Type 2 diabetes mellitus without complication, without long-term current use of insulin: Code(s): E11.9 - Type 2 diabetes mellitus without complications Plan: Currently not on any medication, with last hemoglobin A1c 6.6%. Reinforced importance of following diabetic diet and staying active. Up-to-date with her diabetes retinopathy screening, goes to [facility] (4) Essential hypertension: Code(s): I10 - Essential (primary) hypertension Plan: Blood pressure at goal of less than 130/80. Continue with current medication. Reinforced importance of following a low sodium diet, getting regular exercise, and lowering stress levels. Orders: Orders Alanine Aminotransferase 03/03/24 E11.9 - Type 2 diabetes mellitus without complications, E66.09 - Other obesity due to excess calories, E78.5 - Hyperlipidemia, unspecified, I10 - Essential (primary) hypertension, Z68.34 - Body mass index [BMI] 34.0-34.9, adult Aspartate Amino Transferase 03/03/24 E11.9 - Type 2 diabetes mellitus without complications, E66.09 - Other obesity due to excess calories, E78.5 - Hyperlipidemia, unspecified, I10 - Essential (primary) hypertension, Z68.34 - Body mass index [BMI] 34.0-34.9, adult Basic Metabolic Panel Fasting 03/03/24 E11.9 - Type 2 diabetes mellitus without complications, E66.09 - Other obesity due to excess calories, E78.5 - Hyperlipidemia, unspecified, I10 - Essential (primary) hypertension, Z68.34 - Body mass index [BMI] 34.0-34.9, adult Lipid Panel 03/03/24 E11.9 - Type 2 diabetes mellitus without complications, E66.09 - Other obesity due to excess calories, E78.5 - Hyperlipidemia, unspecified, I10 - Essential (primary) hypertension, Z68.34 - Body mass index [BMI] 34.0-34.9, adult Hemoglobin A1c 09/01/24 E11.9 - Type 2 diabetes mellitus without complications, E66.09 - Other obesity due to excess calories, E78.5 - Hyperlipidemia, unspecified, I10 - Essential (primary) hypertension, Z68.34 - Body mass index [BMI] 34.0-34.9, adult Microalbumin, Random (w Creat) 03/03/24 E11.9 - Type 2 diabetes mellitus without complications, E66.09 - Other obesity due to excess calories, E78.5 - Hyperlipidemia, unspecified, I10 - Essential (primary) hypertension, Z68.34 - Body mass index [BMI] 34.0-34.9, adult Vitamin D 25-OH Total 03/03/24 E11.9 - Type 2 diabetes mellitus without complications, E66.09 - Other obesity due to excess calories, E78.5 - Hyperlipidemia, unspecified, I10 - Essential (primary) hypertension, Z68.34 - Body mass index [BMI] 34.0-34.9, adult Quality Reporting (2019) Depression/Bipolar (159/160/161/177) PHQ-9: Total score: 1 Coding Level of Care Code Medicare Subsequent (G0439) Diagnoses Dyslipidemia E78.5 Class 1 obesity due to excess calories with serious comorbidity and body mass index (BMI) of 34.0 to 34.9 in adult E66.09; Z68.34 Body mass index: BMI 34.0-34.9 Obesity classification: adult class 1 (BMI 30 - 34.9) Obesity type: due to excess calories Serious obesity comorbidity presence: with serious comorbidity Type 2 diabetes mellitus without complication, without long-term current use of insulin E11.9 Essential hypertension I10 CPT Codes Advance Care Planning - Advance Care Planning discussion: On file, no changes ([id number]) Advance Care Planning - Time spent: 1-15 minutes, on File ([id number]) Additional Codes SAMUEL-7 Assessment Billing - SAMUEL-7 Assessment Tool: SAMUEL-7 Assessment 65161 ([id number]) Advance Care Planning Advance Care Planning discussion: On file, no changes Date of discussion: 10/20/23 Who was present: Patient Forms completed: Health Care Proxy and MOLST Time spent: 1-15 minutes, on File Actual minutes spent: 15
== END 2023-10-20 12:02 | disposition home or self-care (01) ==
PROVIDERS: Visit Provider Internal Medicine
DX: Z00.00 Encounter for general adult medical examination without abnormal findings (principal); E11.69 Type 2 diabetes mellitus with other specified complication; E66.09 Other obesity due to excess calories; Z68.34 Body mass index [BMI] 34.0-34.9, adult; E78.5 Hyperlipidemia, unspecified; I10 Essential (primary) hypertension
CPT/HCPCS: 1123F; G0439

== ENCOUNTER 2024-03-19 09:07 | Outpatient (REF) | payer MEDICARE, SELFPAY ==
[2024-03-19 14:10] LABS: Estimated Average Glucose 137 mg/dL; Hemoglobin A1c % 6.4 % (<6.0)
[2024-03-19 14:27] LABS: Alanine Aminotransferase 22 U/L (0-31); Anion Gap 13 (12-20); Aspartate Amino Transferase 25 U/L (5-31); Blood Urea Nitrogen 20 mg/dL (9-16); Carbon Dioxide 25 mmol/L (22-29); Chloride 108 mmol/L (96-108); Cholesterol 165 mg/dL (<200); Estimated Glomerular Filt Rate > 60; Glucose Fasting 144 mg/dL (60-99); HDL Cholesterol 54 mg/dL (>40); LDL Cholesterol Calculated 88 mg/dL (<100); Potassium 4.5 mmol/L (3.3-5.1); Sodium 141 mmol/L (135-145); Triglycerides 115 mg/dL (<150); Vitamin D 25-OH Total 58.9 ng/mL (>30)
[2024-03-19 14:45] LABS: Microalbum/Creatinine Ratio Ur 10.2 ug/mg cr (<30)
== END 2024-03-19 09:08 | disposition home or self-care (01) ==
LOC: HO.HMGCLDS 09:07
PROVIDERS: PCP Internal Medicine; Visit Provider Internal Medicine
DX: E78.5 Hyperlipidemia, unspecified (principal); E66.09 Other obesity due to excess calories; E11.9 Type 2 diabetes mellitus without complications; I10 Essential (primary) hypertension; Z68.34 Body mass index [BMI] 34.0-34.9, adult
CPT/HCPCS: 36415; 80048; 80061; 82043; 82306; 82570; 83036; 84450; 84460

== ENCOUNTER 2024-03-26 11:38 | Outpatient (AMB) | payer MEDICARE, SELFPAY ==
--- NOTE | 2024-03-26 12:01 | A.OFFPC_ITS ---
Vital Signs 03/26/24 12:10 Height 5 ft 3 in Weight 190 lb BMI 33.7 BP 118/70 Blood Pressure Location Lt brachial Position Sitting Pulse 59 Pulse Source Pulse Oximeter Pulse Oximetry (%) 98 Oxygen Delivery Method Room Air Intake Visit Reasons: 5 month follow up Intake Note: Pt is here today for her 3mo. f/u Allergies JEM Inhibitors Allergy (Unknown, Verified 03/26/24 12:33) unknown estrogens, conjugated [From PREMARIN] Allergy (Unknown, Verified 03/26/24 12:33) ITCHING hydrochlorothiazide Allergy (Unknown, Verified 03/26/24 12:33) unknown Medication List - Last Reconciled 03/26/24 by Crystal Huber MD amlodipine 5 mg PO DAILY cetirizine (Zyrtec) 10 mg PO DAILY PRN cholecalciferol (vitamin D3) 25 mcg PO 3XW ibuprofen 200 mg PO Q6H PRN losartan 100 mg PO DAILY metoprolol tartrate 50 mg PO BID omega-3 fatty acids (Fish Oil Concentrate) 1,000 mg PO DAILY simvastatin 10 mg PO QPM Tobacco use date assessed: 03/26/24 Fall risk assessment: No Falls in past year Last assessed Fall Risk: 03/26/24 Dental Screening Dental Screen Date: 03/26/24 Did you have a dental visit in the last 12 months?: No Did you have a dental problem in the last 6 months where you did not have access to dental care?: No Was dental information given to patient?: Patient declined HPI 5 month follow up HPI Details ?83 year old lady with past medical history of hypertension, hyperlipidemia, obesity and type 2 diabetes mellitus diet controlled, here today for her follow-up. Has been feeling well, takes her medicines as directed, stays active. She has no complaints at present time. [facility]LY [facility] Medical History Hx of skin cancer, basal cell Hypercalcemia Trigger finger, acquired Obesity Dyslipidemia Type 2 diabetes mellitus without complication, without long-term current use of insulin Essential hypertension Surgical History History of lobectomy of lung History of tonsillectomy History of cataract surgery History of total abdominal hysterectomy and bilateral salpingo-oophorectomy Family History Father No problems noted. Mother Alzheimer's disease Brother No problems noted. Brother No problems noted. Sister No problems noted. Son No problems noted. Son No problems noted. Daughter No problems noted. Social History Housing: House Alcohol intake: never Patient Tobacco Use Status: Never used Tobacco e-Cigarette/Vaping Use: Never Used service: No Current occupational status: retired and disabled Current occupation: [employer], right handed Cognitive needs: No Hearing needs: No Vision needs: Yes Questionnaire PHQ-9 Over the last 2 weeks, how often have you been bothered by any of the following problems? 1. Little interest or pleasure in doing things: not at all 2. Feeling down, depressed, or hopeless: not at all 3. Trouble falling or staying asleep, or sleeping too much: more than half the days 4. Feeling tired or having little energy: several days 5. Poor appetite or overeating: more than half the days 6. Feeling bad about yourself - or that you are a failure or have let yourself or your family down: not at all 7. Trouble concentrating on things, such as reading the newspaper or watching television: not at all 8. Moving or speaking so slowly that other people could have noticed. Or the opposite - being so fidgety or restless that you have been moving around a lot more than usual: several days 9. Thoughts that you would be better off or of hurting yourself in some way: not at all Total score: 6 Depression Screening Interpretation: Negative Depression Screening Done: Yes 84461 - PHQ-9 Billing: Yes Source: Developed by Drs. Cristian Waters, Jacquelyn Miller, Deejay Champagne and colleagues, with an educational gabriela from [employer]. Thrive Questionnaire Date Thrive assessed: 03/26/24 I am a: Patient What is your living situation today?: I have a steady place to live Within the past 12 months, did the food you bought not last and you didn't have the money to get more?: Never true Within the past 12 months, did you worry whether your food would run out before you got money to buy more?: Never true Do you have trouble paying for medicines?: No Do you have trouble getting transportation to medical appointments?: No Do you have trouble paying your heating and electricity bill?: Yes Do you have trouble taking care of your child, family member or friend?: No Do you have trouble with day-to-day activities such as bathing, preparing meals, shopping, managing finances, etc.?: No Are you interested in more education?: No Please select the resources that you would like help with: Utilities Currently or been in a relationship where the following occur: No concerns reported THRIVE Score: 1 AUDIT C Alcohol Use Questionnaire (AUDIT-C) 1. How often do you have a drink containing alcohol?: Never Total Score: 0 SAMUEL-7 AMB Questionnaire SAMUEL-7 Date SAMUEL - 7 assessed: 03/26/24 Feeling nervous, anxious, or on edge: 0 = Not at all Not being able to stop or control worryin = Several days Worrying too much about different things: 1 = Several days Trouble relaxin = Not at all Being so restless that it is hard to sit still: 0 = Not at all Becoming easily annoyed or irritable: 0 = Not at all Feeling afraid as if something awful might happen: 0 = Not at all Total SAMUEL-7 score (0-4 normal; 5-9 mild; 10-14 moderate; 15-21 severe): 2 Source: Developed by Drs. Cristian Waters, Jacquelyn Miller, Deejay Champagne and colleagues, with an educational gabriela from [employer]. SAMUEL-7 Assessment Billing SAMUEL-7 Assessment Tool: SAMUEL-7 Assessment 17776 Review of Systems Const Denies body aches, Denies fatigue, Denies headache(s) and Denies weakness Eyes Denies change in vision ENT Denies dizziness, Denies headache(s), Denies nasal congestion, Denies nasal discharge and Denies sore throat Card Denies chest pain, Denies lightheadedness, Denies palpitations and Denies dyspnea Resp Denies chest congestion, Denies cough, Denies dyspnea and Denies wheezing GI Denies abdominal pain, Denies change in bowel habits and Denies heartburn Denies urinary frequency, Denies dysuria and Denies urinary urgency Musc Denies back pain, Denies myalgias, Denies arthralgias, Denies joint swelling and Denies limited range of motion Neuro Denies dizziness, Denies headache(s) and Denies weakness Endo Denies fatigue, Denies polydipsia, Denies polyuria and Denies palpitations Aller/Immun Denies wheezing Physical exam (Primary Care) Vital Signs: Last Vital Signs Pulse 59 03/26/24 12:10 BP 118/70 03/26/24 12:10 Pulse Ox 98 03/26/24 12:10 Oxygen Delivery Method Room Air 03/26/24 12:10 BMI result Body Mass Index 33.7 BMI Assessment/Plan discussion: High BMI High, discussed plan: lifestyle, weight reduction, dietary and physical activity Tobacco/Smoking Status: Tobacco use Status Tobacco use date assessed 03/26/24 03/26/24 12:15 Patient Tobacco Use Status Never used Tobacco 03/26/24 12:02 e-Cigarette/Vaping Use Never Used 03/26/24 12:02 PHQ-9: PHQ-9 Score PHQ-9: Total score 6 03/26/24 12:46 Depression Screening Interpretation: Negative Thrive Assessment: Date of Thrive Assessment Date Thrive assessed 03/26/24 03/26/24 12:15 Currently or been in a relationship where the following occur: No concerns reported Const General: comfortable, no acute distress and alert Orientation/consciousness: patient oriented x3 Limitations: no limitations HENMT Ears: external ears normal General nose exam: Normal external nose present and No nasal discharge present Mouth: oropharynx normal and moist mucous membranes Eyes General: appearance normal, both eyes and all related structures Neck Neck: Yes full ROM, Yes no lymphadenopathy and Yes supple Resp Effort & Inspection: normal respiratory effort and able to speak in complete sentences Auscultation: clear to auscultation bilaterally Cardio Rate: regular rate Rhythm: regular rhythm Heart sounds: S1 normal heart sound present and S2 normal heart sound present GI Palpation (GI): Soft to palpation, nontender and no masses Auscultation: normal bowel sounds Back/Spine/Pelvis Back: No back tenderness Skin General skin exam: no rashes or lesions noted Neuro General: patient oriented x3, gait normal, tone normal, moves all extremities, Normal light touch and pain sensation and no focal motor deficits Cranial nerves: Yes CN's II-XII intact bilaterally Cognition (Neuro): normal cognition Extrem General: Yes full ROM, Yes no joint enlargement, Yes no clubbing, cyanosis or edema and Yes no calf tenderness Results Reviewed Results Reviewed: Laboratory Tests 03/19/24 03/19/24 09:50 09:55 Estimat Average Glucose 137 Hemoglobin A1c % 6.4 H Urine Creatinine 272.53 Urine Microalbumin 28.0 Microalb/Creat Ratio 10.2 Name: Samreen Jensen Age/Sex: 83/F : 1940 Unit#: [id number] Attend Dr: Crystal Huber MD Re03/19/24 Status: DEP REF Location: [facility] Disch: SPEC : [id number] SAMEER: 03/19/24 STATUS: COMP REQ : [id number] RECD: 03/19/24-[address]: Crystal Huber MD COMP: 03/19/24 ENTERED: 03/19/24-[address]: ORDERED: Met Prof Fast, AST, ALT, Lipid Panel, Vitamin D 25-OH Test Result Flag Reference Sodium 141 135-145 mmol/L Potassium 4.5 3.3-5.1 mmol/L CL 108 96-108 mmol/L CO2 25 22-29 mmol/L Gap 13 12-20 BUN 20 H 9-16 mg/dL Creat 0.89 0.5-1.4 mg/dL EGFR > 60 NOTE: For -[place] individuals, multiply the result by 1.210. Chronic Kidney Disease: Estimated GFR < 60 mL/min/1.73m2 Severe Kidney Disease: Estimated GFR < 15 mL/min/1.73m2 FBS 144 H 60-99 mg/dL A fasting glucose of 126 mg/dl or greater on more than one occasion is considered diagnostic of diabetes. CA 10.0 8.4-10.2 mg/dL AST (GOT) 25 5-31 U/L ALT (GPT) 22 0-31 U/L Triglyceride 115 <150 mg/dL Desirable Triglyceride: less than 150 mg/dL Borderline High Triglyceride 150-199 mg/dL High Triglyceride: 200-499 mg/dL Very High Triglyceride: greater than or equal to 5OO mg/dL Cholesterol 165 <200 mg/dL Desirable Cholesterol: less than 200 mg/dL Borderline High Cholesterol: 200-239 mg/dL High Cholesterol: greater than 239 mg/dL LDL Calculated 88 <100 mg/dL Desirable LDL: less than 100 mg/dL Near Optimal/Above Optimal LDL: 110-129 mg/dL Borderline High LDL: 130-159 mg/dL High LDL: 160-189 mg/dL Very High LDL: greater than or equal to 190 mg/dL HDL 54 >40 mg/dL Desirable HDL: greater than 40 mg/dL Note: This HDL assay may give artificially low results in patients with liver disease. Vit D 25-OH Tot 58.9 >30 ng/mL Health Based Reference Values* < 20 ng/mL Deficient 20-30 ng/mL Insufficient > 30 ng/mL Sufficient *Kenia ROJAS. N Engl J Med. 2007;357:266-280 Care must be taken in interpreting Vitamin D results from different laboratories and methodologies. Published data demonstrated that results from patients undergoing hemodialysis may show a negative bias when tested with various automated 25-OH vitamin D assays when compared to LC-MS/MS. When testing samples from patients whose predominant form of Vitamin D is Vitamin D2, such as patients receiving Vitamin D2 supplementation, results that are subtherapeutic should be confirmed with another method such as LC-MS/MS. Assessment and Plan Assessment & Plan (1) Essential hypertension: Code(s): I10 - Essential (primary) hypertension Plan: Blood pressure stable controlled, continued on metoprolol tartrate 50 mg 1 tablet twice a day, losartan 100 mg daily and amlodipine 5 mg daily. Continue with a low-salt diet and stay active. (2) Type 2 diabetes mellitus without complication, without long-term current use of insulin: Code(s): E11.9 - Type 2 diabetes mellitus without complications Plan: Recent lab results reviewed with patient, with sugar and hemoglobin A1c stable and at goal . Continue with diabetic diet and regular exercise with patient. Counseled regarding importance of yearly diabetes retinopathy screening. Patient advised to inspect feet daily, for any signs of injury, callus or infection. Compliance with diet and regular exercise again stressed. Blood pressure goal is less than 130/80, goal LDL is less than 100 and goal hemoglobin A1c is less than 7% (3) Dyslipidemia: Code(s): E78.5 - Hyperlipidemia, unspecified Plan: Recent fasting lipids are within normal limits, continued on simvastatin 10 mg daily at bedtime together with the med [place] 3 fatty acid supplements a 1000 mg twice a day Orders: Orders Lipid Panel 10/01/24 E11.9 - Type 2 diabetes mellitus without complications, E66.09 - Other obesity due to excess calories, E78.5 - Hyperlipidemia, unspecified, I10 - Essential (primary) hypertension, Z68.34 - Body mass index [BMI] 34.0-34.9, adult Basic Metabolic Panel Fasting 10/01/24 E11.9 - Type 2 diabetes mellitus without complications, E66.09 - Other obesity due to excess calories, E78.5 - Hyperlipidemia, unspecified, I10 - Essential (primary) hypertension, Z68.34 - Body mass index [BMI] 34.0-34.9, adult Hemoglobin A1c 10/01/24 E11.9 - Type 2 diabetes mellitus without complications, E66.09 - Other obesity due to excess calories, E78.5 - Hyperlipidemia, unspecified, I10 - Essential (primary) hypertension, Z68.34 - Body mass index [BMI] 34.0-34.9, adult Microalbumin, Random (w Creat) 10/01/24 E11.9 - Type 2 diabetes mellitus without complications, E66.09 - Other obesity due to excess calories, E78.5 - Hyperlipidemia, unspecified, I10 - Essential (primary) hypertension, Z68.34 - Body mass index [BMI] 34.0-34.9, adult Alanine Aminotransferase 10/01/24 E11.9 - Type 2 diabetes mellitus without complications, E66.09 - Other obesity due to excess calories, E78.5 - Hyperlipidemia, unspecified, I10 - Essential (primary) hypertension, Z68.34 - Body mass index [BMI] 34.0-34.9, adult Aspartate Amino Transferase 10/01/24 E11.9 - Type 2 diabetes mellitus without complications, E66.09 - Other obesity due to excess calories, E78.5 - Hyperlipidemia, unspecified, I10 - Essential (primary) hypertension, Z68.34 - Body mass index [BMI] 34.0-34.9, adult Vitamin D 25-OH Total 10/01/24 E11.9 - Type 2 diabetes mellitus without complications, E66.09 - Other obesity due to excess calories, E78.5 - Hy perlipidemia, unspecified, I10 - Essential (primary) hypertension, Z68.34 - Body mass index [BMI] 34.0-34.9, adult Coding Level of Care Code Est Pt Level 4 (94987) Complex EM visit Add On G2211 Diagnoses Essential hypertension I10 Type 2 diabetes mellitus without complication, without long-term current use of insulin E11.9 Dyslipidemia E78.5 Additional Codes SAMUEL-7 Assessment Billing - SAMUEL-7 Assessment Tool: SAMUEL-7 Assessment [id number] ([id number])
[2024-03-26 12:10] VITALS: BP 118/70; PULSE 59; O2SAT 98; BMI 33.7
== END 2024-03-26 12:45 | disposition home or self-care (01) ==
PROVIDERS: PCP Internal Medicine; Visit Provider Internal Medicine
DX: I10 Essential (primary) hypertension (principal); E11.9 Type 2 diabetes mellitus without complications; E78.5 Hyperlipidemia, unspecified

== ENCOUNTER → 2024-03-26 11:38 | Outpatient (BNVA) | payer MEDICARE, SELFPAY | PROVIDERS: PCP Internal Medicine; Visit Provider Internal Medicine | DX: I10 Essential (primary) hypertension (principal); E11.9 Type 2 diabetes mellitus without complications; E78.5 Hyperlipidemia, unspecified; E66.09 Other obesity due to excess calories; Z68.34 Body mass index [BMI] 34.0-34.9, adult; Z71.3 Dietary counseling and surveillance | CPT/HCPCS: 96127; 99212 ==

== ENCOUNTER 2024-07-25 11:08 | Outpatient (REF) | payer MEDICARE, SELFPAY | END 2024-07-25 11:09 | disposition home or self-care (01) | LOC: HO.MAMMO 11:08 | PROVIDERS: PCP Internal Medicine; Visit Provider Internal Medicine | DX: Z12.31 Encounter for screening mammogram for malignant neoplasm of breast (principal) | CPT/HCPCS: 77063; 77067 ==

== ENCOUNTER → 2024-07-25 11:15 | Outpatient (BNV) | payer MEDICARE, SELFPAY | PROVIDERS: PCP Internal Medicine; Visit Provider Internal Medicine | DX: Z12.31 Encounter for screening mammogram for malignant neoplasm of breast (principal) | CPT/HCPCS: 77063; 77067 ==

== ENCOUNTER 2024-10-16 10:30 | Outpatient (REF) | payer MEDICARE, SELFPAY ==
[2024-10-16 13:51] LABS: Alanine Aminotransferase 17 U/L (0-31); Anion Gap 12 (12-20); Aspartate Amino Transferase 24 U/L (5-31); Blood Urea Nitrogen 22 mg/dL (9-16); Calcium 9.8 mg/dL (8.4-10.2); Carbon Dioxide 26 mmol/L (22-29); Chloride 106 mmol/L (96-108); Cholesterol 168 mg/dL (<200); Estimated Glomerular Filt Rate > 60; Glucose Fasting 169 mg/dL (60-99); HDL Cholesterol 59 mg/dL (>40); LDL Cholesterol Calculated 84 mg/dL (<100); Potassium 4.3 mmol/L (3.3-5.1); Sodium 140 mmol/L (135-145); Triglycerides 128 mg/dL (<150)
[2024-10-16 13:53] LABS: Estimated Average Glucose 137 mg/dL; Hemoglobin A1C 174.5527 umol/L; Hemoglobin A1c % 6.4 % (<6.0); Total Hemoglobin (HGBA1C) 3725.3185 umol/L
[2024-10-16 14:10] LABS: Creatinine Urine 176.64 mg/dL; Microalbum/Creatinine Ratio Ur 11.8 ug/mg cr (<30)
== END 2024-10-16 10:31 | disposition home or self-care (01) ==
LOC: HO.HMGCLDS 10:30
PROVIDERS: PCP Internal Medicine; Visit Provider Internal Medicine
DX: E66.09 Other obesity due to excess calories (principal); E78.5 Hyperlipidemia, unspecified; E11.9 Type 2 diabetes mellitus without complications; I10 Essential (primary) hypertension; Z68.34 Body mass index [BMI] 34.0-34.9, adult
CPT/HCPCS: 36415; 80048; 80061; 82043; 82306; 82570; 83036; 84450; 84460

== ENCOUNTER 2024-10-24 10:35 | Outpatient (AMB) | payer MEDICARE, SELFPAY ==
--- NOTE | 2024-10-24 10:44 | A.OFFVIS_ITS ---
Intake Vital Signs 10/24/24 10:46 Height 5 ft 3 in Weight 187 lb BMI 33.1 Respiration 16 Pulse 56 Pulse Source Pulse Oximeter Temp 98.3 F Temp Source Oral Pulse Oximetry (%) 97 Intake Visit Reasons: SWV G0439 Intake Note: Pt is here today for her SWV: Last bone density scan 07/08/21 Allergies JEM Inhibitors Allergy (Unknown, Verified 10/24/24 10:45) unknown estrogens, conjugated [From PREMARIN] Allergy (Unknown, Verified 10/24/24 10:45) ITCHING hydrochlorothiazide Allergy (Unknown, Verified 10/24/24 10:45) unknown HPI SWV G0439 HPI Details SWV ?84 year old with hypertension, hyperlipidemia, obesity and type 2 diabetes mellitus- diet controledl, here today for her subsequent wellness visit She had a recent mammogram done 07/25/2024 with normal findings , and had a bone density scan done2021 which showed normal findings. She no longer gets colonoscopies, last one in [address] Martin came back with normal findings. She is up-to-date with her lipid screening, last done 10/16/2024 with normal fine, and had a hemoglobin A1c and at done at the same time which came back at 6.4% with an average glucose at 137 mg/dL She is up-to-date with her COVID vaccination, gets yearly flu shot, up-to-date with her pneumonia vaccine and shingles vaccine. ? Medical / Social History Reviewed? Past Medical History ?Yes . ? [place] of Care / Care Team list updated ?Yes . ? Surgical/Hospitalization History ?Yes . ? Current Medications (including OTC and supplements) ?Yes . ? Family History ?Yes . ? Tobacco Control form ?Yes . ? AUDIT-C (Alcohol use) form ?Yes . ? Illicit drug use in Social History ?Yes . ? Current diagnosis of depression? ?No ? Appropriate PHQ2/PHQ9 completed ?Yes . ? Data entered by ?Process Design Chemical Engineer and reviewed by provider ? Fall Risk ? Fall History? Have you had any falls with injury in the past year? ?No . ? Have you had two or more falls in the past year? ?No . ? Fall Risk Assessment: ?No falls in the past year . ? HRA filled out by the patient, reviewed by Provider and scanned. ?SWV ? Balance? Romberg negative. ? Tandem walk ?Yes, ? Walk and Turn ?Yes . ? Rise from sit to stand ?Yes . ?Vision? Corrective lens ?none ? Vision screen ? Up-to-date, she sees Soledad Mitchell O.D. at the [facility] ?Hearing? Whisper test ?pass . ?Written Plan?Completed. See Patient Documents.? MOLST and healthcare proxy form already done [facility] Medical History Hx of skin cancer, basal cell Hypercalcemia Trigger finger, acquired Obesity Dyslipidemia Type 2 diabetes mellitus without complication, without long-term current use of insulin Essential hypertension Surgical History History of lobectomy of lung History of tonsillectomy History of cataract surgery History of total abdominal hysterectomy and bilateral salpingo-oophorectomy Family History Father No problems noted. Mother Alzheimer's disease Brother No problems noted. Brother No problems noted. Sister No problems noted. Son No problems noted. Son No problems noted. Daughter No problems noted. Social History Housing: House Alcohol intake: never Patient Tobacco Use Status: Never used Tobacco e-Cigarette/Vaping Use: Never Used service: No Current occupational status: retired and disabled Current occupation: [employer], right handed Cognitive needs: No Hearing needs: No Vision needs: Yes Questionnaire Medicare Wellness Checkup What is your age?: 80 or older During the past 4 weeks, how much have you been bothered by emotional problems such as feeling anxious, depressed, irritable, sad or downhearted, and blue?: not at all During the past 4 weeks, has your physical & emotional health limited your social activities with family, friends, neighbors, or groups?: not at all During the past 4 weeks, how much bodily pain have you generally had?: mild pain During the past 4 weeks, was someone available to help you if you needed & wanted help?: yes, as much as I wanted During the past 4 weeks, what was the hardest physical activity you could do for at least 2 minutes?: moderate Can you get to places out of walking distance without help? (For eg., can you travel alone on buses, taxis or drive your car?): Yes Can you go shopping for groceries or clothes without someone's help?: Yes Can you prepare your own meals?: Yes Can you do your housework without help?: Yes Because of any health problems, do you need the help of another person with your personal care needs such as eating, bathing, dressing or getting around the house?: No Can you handle your own money without help?: Yes During the past 4 weeks, how would you rate your health in general?: good During the past 4 weeks how have things been going for you?: pretty well Are you having difficulties driving your car?: not applicable, I don't use a car Do you always fasten your seat belt when you are in a car?: yes, usually During past 4 weeks, have you been bothered by the following: never: Sexual problems?, Trouble eating well? and Problems using the telephone? and sometimes: Falling or dizzy when standing up, Teeth or denture problems? and Tiredness or fatigue? Have you fallen 2 or more times in the past year?: No Are you afraid of falling?: No Are you a smoker?: no During the past 4 weeks, how many drinks of wine, beer, or other alcoholic beverages did you have?: no alcohol at all Do you exercise for about 20 minutes 3 or more times a week?: no, I usually do not exercise this much Have you been given information to help with the following?: no: Hazards in your house that might hurt you? and no: Keeping track of your medications? How often do you have trouble taking medicines the way you have been told to take them?: I always take medicine as prescribed How confident are you that you can control & manage most of your health problems?: very confident What is your race?: White Mini Mental State Exam (MMSE) Orientation What is the (year) (season) (date) (day) (month)?: year (2024), season (Spring), date (10/23/2024), day () and month (October) Where are we (state) (county) (town or city) (hospital) (floor)?: state ([place]), county ([place]), town or city ([place]) and hospital/clinic ([facility]) Score Score: 9 Activity of Daily Living Bathing - sponge bath, tub bath or shower: receives no assistance (gets in/out by self, if usual bathing means Dressing - getting clothes from closets & drawers, including inner/outer garments & fasteners.: gets clothes & gets completely dressed without help Toileting - going to the 'toilet room' for urine/bowel elimination & cleaning self/arranging clothes: goes to toilet room, cleans self, arranges clothes without help Transfer: moves in & out of bed and chair without help (may use support object) Continence: has occasional 'accidents' Feeding: feeds self without help Total Score: 0 Using telephone: independent Traveling: needs assistance Shopping: needs assistance Preparing meals: independent Housework: needs assistance Taking medicine: independent Managing money: independent PHQ-9 Over the last 2 weeks, how often have you been bothered by any of the following problems? 1. Little interest or pleasure in doing things: not at all 2. Feeling down, depressed, or hopeless: not at all 3. Trouble falling or staying asleep, or sleeping too much: several days 4. Feeling tired or having little energy: not at all 5. Poor appetite or overeating: not at all 6. Feeling bad about yourself - or that you are a failure or have let yourself or your family down: not at all 7. Trouble concentrating on things, such as reading the newspaper or watching television: not at all 8. Moving or speaking so slowly that other people could have noticed. Or the opposite - being so fidgety or restless that you have been moving around a lot more than usual: not at all 9. Thoughts that you would be better off or of hurting yourself in some way: not at all Total score: 1 Depression Screening Interpretation: Negative Depression Screening Done: Yes 99035 - PHQ-9 Billing: Yes Source: Developed by Drs. Cristian Waters, Jacquelyn Miller, Deejay Champagne and colleagues, with an educational gabriela from [employer]. Physical Exam Vital Signs: Last Vital Signs Temp 98.3 F 10/24/24 10:46 Pulse 56 10/24/24 10:46 Resp 16 10/24/24 10:46 Pulse Ox 97 10/24/24 10:46 BMI result Body Mass Index 33.1 Assessment & Plan Assessment & Plan (1) Dyslipidemia: Code(s): E78.5 - Hyperlipidemia, unspecified Plan: Continue with simvastatin 10 mg daily at bedtime and [place] 3 fatty acid supplements daily (2) Type 2 diabetes mellitus without complication, without long-term current use of insulin: Code(s): E11.9 - Type 2 diabetes mellitus without complications Plan: Controlled with lifestyle modification. Continue adherence to healthy eating habits and regular exercise. (3) Essential hypertension: Code(s): I10 - Essential (primary) hypertension Plan: Continue losartan 100 mg daily together with metoprolol tartrate 50 mg 1 tablet twice a day (4) Encounter for subsequent annual wellness visit (AWV) in Medicare patient: Code(s): Z00.00 - Encounter for general adult medical examination without abnormal findings Plan: Medical wellness checklist reviewed, discussed with patient and updated . Ordered follow-up bone density scan Orders: Orders XR DEXA axial skeleton 10/24/24 Z13.820 - Encounter for screening for osteoporosis, Z78.0 - Asymptomatic menopausal state Quality Reporting (2019) Depression/Bipolar (159/160/161/177) PHQ-9: Total score: 1 Coding Level of Care Code Medicare Subsequent (G0439) Diagnoses Dyslipidemia E78.5 Type 2 diabetes mellitus without complication, without long-term current use of insulin E11.9 Essential hypertension I10 Encounter for subsequent annual wellness visit (AWV) in Medicare patient Z00.00 CPT Codes Advance Care Planning - Advance Care Planning discussion: On file, no changes ([id number]) Advance Care Planning - Time spent: 1-15 minutes, on File ([id number]) Additional Codes PHQ-9 - 80407 - PHQ-9 Billing: Yes ([id number]) Advance Care Planning Advance Care Planning discussion: On file, no changes Date of discussion: 10/20/23 Who was present: Patient Forms completed: Health Care Proxy and MOLST Time spent: 1-15 minutes, on File Actual minutes spent: 1
[2024-10-24 10:46] VITALS: PULSE 56; RESP 16; TEMP 36.8; O2SAT 97; BMI 33.1
== END 2024-10-24 11:40 | disposition home or self-care (01) ==
LOC: HO.HMCC 10:36
PROVIDERS: PCP Internal Medicine; Visit Provider Internal Medicine
DX: Z00.00 Encounter for general adult medical examination without abnormal findings (principal); E78.5 Hyperlipidemia, unspecified; E11.69 Type 2 diabetes mellitus with other specified complication; I10 Essential (primary) hypertension

== ENCOUNTER → 2024-10-24 10:35 | Outpatient (BNVA) | payer MEDICARE, SELFPAY | PROVIDERS: PCP Internal Medicine; Visit Provider Internal Medicine | DX: Z00.00 Encounter for general adult medical examination without abnormal findings (principal); E78.5 Hyperlipidemia, unspecified; E11.9 Type 2 diabetes mellitus without complications; I10 Essential (primary) hypertension | CPT/HCPCS: 96127 ==

== ENCOUNTER 2024-10-31 11:09 | Outpatient (AMB) | payer MEDICARE, SELFPAY ==
[2024-10-31 11:35] VITALS: BP 122/60; PULSE 64; RESP 16; TEMP 36.6; O2SAT 97; BMI 33.3
--- NOTE | 2024-10-31 11:35 | MHC.PC.OV ---
Vital Signs 10/31/24 11:35 Height 5 ft 3 in Weight 188 lb BMI 33.3 BP 122/60 Blood Pressure Location Rt brachial Position Sitting Respiration 16 Pulse 64 Pulse Source Pulse Oximeter Temp 97.9 F Temp Source Oral Pulse Oximetry (%) 97 Oxygen Delivery Method Room Air Intake Visit Reasons: cerumen irrigation per AE Allergies JEM Inhibitors Allergy (Unknown, Verified 10/31/24 11:58) unknown estrogens, conjugated [From PREMARIN] Allergy (Unknown, Verified 10/31/24 11:58) ITCHING hydrochlorothiazide Allergy (Unknown, Verified 10/31/24 11:58) unknown Medication List - Last Reconciled 10/31/24 by Crystal Huber MD amlodipine 5 mg PO DAILY cholecalciferol (vitamin D3) 25 mcg PO 3XW fexofenadine (Radha Allergy) 60 mg PO BID ibuprofen 200 mg PO Q6H PRN losartan 100 mg PO DAILY metoprolol tartrate 50 mg PO BID omega-3 fatty acids (Fish Oil Concentrate) 1,000 mg PO DAILY simvastatin 10 mg PO QPM Tobacco use date assessed: 10/31/24 Fall risk assessment: No Falls in past year Last assessed Fall Risk: 10/31/24 Dental Screening Dental Screen Date: 10/31/24 Did you have a dental visit in the last 12 months?: No Did you have a dental problem in the last 6 months where you did not have access to dental care?: No Was dental information given to patient?: No HPI cerumen irrigation per AE HPI Details Patient complaining of blocked ear, with decreased hearing in the right side. Denies any pain, no ear discharge. Denies any accompanying dizziness or lightheadedness, no gait instability reported. [facility] Medical History Hx of skin cancer, basal cell Hypercalcemia Trigger finger, acquired Obesity Dyslipidemia Type 2 diabetes mellitus without complication, without long-term current use of insulin Essential hypertension Surgical History History of lobectomy of lung History of tonsillectomy History of cataract surgery History of total abdominal hysterectomy and bilateral salpingo-oophorectomy Family History Father No problems noted. Mother Alzheimer's disease Brother No problems noted. Brother No problems noted. Sister No problems noted. Son No problems noted. Son No problems noted. Daughter No problems noted. Social History Housing: House Alcohol intake: never Patient Tobacco Use Status: Never used Tobacco e-Cigarette/Vaping Use: Never Used service: No Current occupational status: retired and disabled Current occupation: [employer], right handed Cognitive needs: No Hearing needs: No Vision needs: Yes Questionnaire Thrive Questionnaire Date Thrive assessed: 10/28/24 I am a: Patient What is your living situation today?: I have a steady place to live Within the past 12 months, did the food you bought not last and you didn't have the money to get more?: I choose not to answer this question Within the past 12 months, did you worry whether your food would run out before you got money to buy more?: Never true Do you have trouble paying for medicines?: No Do you have trouble getting transportation to medical appointments?: No Do you have trouble paying your heating and electricity bill?: No Do you have trouble taking care of your child, family member or friend?: No Do you have trouble with day-to-day activities such as bathing, preparing meals, shopping, managing finances, etc.?: No Are you currently unemployed and looking for a job?: I choose not to answer this question Are you interested in more education?: No Please select the resources that you would like help with: None Currently or been in a relationship where the following occur: No concerns reported THRIVE Score: 0 AUDIT C Alcohol Use Questionnaire (AUDIT-C) 1. How often do you have a drink containing alcohol?: Never 3. How often do you have six or more drinks on one occasion?: Never Total Score: 0 SAMUEL-7 AMB Questionnaire SAMUEL-7 Date SAMUEL - 7 assessed: 03/26/24 Feeling nervous, anxious, or on edge: 0 = Not at all Not being able to stop or control worryin = Not at all Worrying too much about different things: 0 = Not at all Trouble relaxin = Not at all Being so restless that it is hard to sit still: 0 = Not at all Becoming easily annoyed or irritable: 0 = Not at all Feeling afraid as if something awful might happen: 0 = Not at all Total SAMUEL-7 score (0-4 normal; 5-9 mild; 10-14 moderate; 15-21 severe): 0 Source: Developed by Drs. Cristian Waters, Jacquelyn Miller, Deejay Champagne and colleagues, with an educational gabriela from [employer]. Review of Systems Const All systems reviewed & are unremarkable except as noted in HPI and below Physical exam (Primary Care) Vital Signs: Last Vital Signs Temp 97.9 F 10/31/24 11:35 Pulse 64 10/31/24 11:35 Resp 16 10/31/24 11:35 BP 122/60 10/31/24 11:35 Pulse Ox 97 10/31/24 11:35 Oxygen Delivery Method Room Air 10/31/24 11:35 BMI result Body Mass Index 33.3 Tobacco/Smoking Status: Tobacco use Status Tobacco use date assessed 10/31/24 10/31/24 11:41 Patient Tobacco Use Status Never used Tobacco 10/31/24 11:41 e-Cigarette/Vaping Use Never Used 10/31/24 11:41 Thrive Assessment: Date of Thrive Assessment Date Thrive assessed 10/28/24 10/31/24 11:41 Currently or been in a relationship where the following occur: No concerns reported Const Other: Alert oriented x3, no acute distress noted ambulatory with normal gait HENMT Other: Impacted cerumen AD, external auditory canal and tympanic membrane normal Office Procedures Cerumen Removal From which ear canal was the cerumen removed: right Removal: irrigation Notes: patient tolerated procedure well, no complications and ear canal clear 49524-Emm Irrigation/Lavage Coding Level of Care Code Est Pt Level 3 (12486) Diagnoses Impacted cerumen of right ear H61.21 CPT Codes Office Procedure - CPT: 41668-Vpb Irrigation/Lavage ([id number]) Assessment & Plan Assessment & Plan (1) Impacted cerumen of right ear: Code(s): H61.21 - Impacted cerumen, right ear Plan: Cerumen removal by ear irrigation, successful, patient tolerated procedure well, right ear canal now clear tympanic membrane visualized and intact. Patient ambulatory with normal gait, denies any dizziness or lightheadedness or headache after procedure done
== END 2024-10-31 12:56 | disposition home or self-care (01) ==
LOC: HO.HMCC 11:10
PROVIDERS: PCP Internal Medicine; Visit Provider Internal Medicine
DX: H61.21 Impacted cerumen, right ear (principal)

== ENCOUNTER → 2024-10-31 11:09 | Outpatient (BNVA) | payer MEDICARE, SELFPAY | PROVIDERS: PCP Internal Medicine; Visit Provider Internal Medicine | DX: H61.21 Impacted cerumen, right ear (principal) | CPT/HCPCS: 69209; 99212 ==